=== PATIENT | female | born 1960 | race Caucasian/White ===

== ENCOUNTER 2016-07-14 08:40 | Emergency (ER) | payer BC, OTHER ==
[2016-07-14 09:08] LABS: BASO % 0.7 % (0.0-1.0); EOS # 0.1 K/mm3 (0.0-0.50); LARGE UNSTAINED CELL # 0.1 K/mm3 (0.0-0.4); LARGE UNSTAINED CELL % 2.7 % (0.0-4.0); LYMPH # 1.4 K/mm3 (1.5-4.5); LYMPH % 35.6 % (24.0-44.0); MEAN CORPUSCULAR VOLUME 91.3 fl (80.0-96.0); MONO # 0.2 K/mm3 (0.0-0.8); NEUTROPHILS # 2.1 K/mm3 (1.8-7.7); NEUTROPHILS % 53.1 % (36.0-66.0); PLATELET COUNT, AUTOMATED 206 k/mm3 (150-450); WHITE BLOOD COUNT 3.9 K/mm3 (4.0-10.0)
--- NOTE | 2016-07-14 09:17 | REP ---
Chest one-view HISTORY: Chest pain Comparison: 10/16/2012 The lungs are clear. The heart is normal in size. The pulmonary vasculature is normal in appearance. Impression: No acute disease. Signed by Afshin Gonzáles MD 07/14/2016 09:08 A
[2016-07-14 09:39] LABS: ANION GAP 7 MEQ/L (8-16); BLOOD UREA NITROGEN 12 MG/DL (7-18); CARBON DIOXIDE LEVEL 28 MEQ/L (21-32); CHLORIDE LEVEL 106 MEQ/L (98-107); CREATININE FOR GFR 0.84 MG/DL (0.55-1.02); GLOMERULAR FILTRATION RATE > 60.0 (>51); GLUCOSE, FASTING 89 MG/DL (70-105); POTASSIUM SERUM 4.2 MEQ/L (3.5-5.1); SODIUM LEVEL 141 MEQ/L (136-145)
[2016-07-14] MEDS ORDERED: GI COCKTAIL 50ML BTL(HYOSCYAMINE/MAALOX/LIDOCAINE VISCOUS)(1:3:1) As Ordered ONE (10:10)
[2016-07-14] MEDS ORDERED: PANTOPRAZOLE 40MG INJ (PROTONIX) (C9113) As Ordered ONE (10:10)
[2016-07-14] MEDS ORDERED: SUCRALFATE 1 GM TAB As Ordered ONE (11:26)
--- NOTE | 2016-07-14 12:43 | EDDOCDS ---
Physician Documentation [facility] Name: Kelli Collins Age: 56 yrs Sex: Female : 1960 Arrival Date: 07/14/2016 Time: 08:40 Bed OBSERVATION Private MD: Disposition: 07/14 10:13 I have independently interviewed and examined the patient, and I agree with the sd1 investigation, diagnosis and treatment plan as documented by the Resident. Disposition: 07/14/16 12:22 Discharged to Home/Self Care. Impression: Gastro-esophageal reflux disease. - Condition is Stable. - Medication Reconciliation, Local Pharmacy Hours form. - Follow up: Private Physician; When: As previously arranged; Reason: Recheck today's complaints, Continuance of care. - Problem is new. - Symptoms have improved. - Notes: You were evaluated in the emergency department for chest pain. Your initial and repeatlaboratory results reported no acute changes. Your initial EKG and repeat EKG reported no acute changes. Your chest x-ray revealed no acute disease. You were given a selection of stomach medications which relieved your symptoms. Please keep your pre-scheduled appointment with your lab animal technician and schedule an appointment with your primary care provider at your soonest convenience. Historical: - Allergies: no known allergies; - Home Meds: 1. Zantac 150 mg Oral cap 1 cap 2 times per day 2. Vitamin D3 oral oral daily 3. Estradiol 10mcg Oral once daily - PMHx: GERD; - PSHx: none; - Social history: Smoking status: Patient states former smoker of tobacco. No barriers to communication noted, The patient speaks fluent American. - Family history: Not pertinent. - : The pt / caregiver states he / she is not on anticoagulants. Home medication list is obtained from the patient, family members. - Exposure Risk Screening:: None identified. 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 8 in. (172.72 cm); kr3 08:53 BP 161 / 72 (auto/); mlb1 08:53 Pulse 108 MON; Pulse Ox 94% ; mlb1 08:53 BP 116 / 59; Pulse 62; Resp 16; Temp 97.7(O); Pulse Ox 96% on R/A; Pain 0/10; mlb1 08:55 BP 161 / 72; Pulse 118; Resp 18; Pulse Ox 99% on R/A; Pain 5/10; dem1 08:57 Temp 96.8(O); dem1 09:08 BP 131 / 63 (auto/); mlb1 09:08 Pulse 62 MON; Pulse Ox 98% ; mlb1 09:23 BP 129 / 63 (auto/); mlb1 09:23 Pulse 64 MON; Pulse Ox 98% ; mlb1 09:38 BP 156 / 71 (auto/); mlb1 09:38 Pulse 72 MON; Pulse Ox 99% ; mlb1 09:53 BP 139 / 65 (auto/); mlb1 09:53 Pulse 60 MON; Pulse Ox 99% ; mlb1 10:08 BP 131 / 64 (auto/); mlb1 10:08 Pulse 70 MON; Pulse Ox 100% ; mlb1 10:23 BP 129 / 68 (auto/); mlb1 10:23 Pulse 62 MON; Pulse Ox 98% ; mlb1 10:38 BP 115 / 59 (auto/); mlb1 10:38 Pulse 66 MON; Pulse Ox 97% ; mlb1 10:39 Pain 0/10; mlb1 10:53 BP 117 / 67 (auto/); mlb1 10:53 Pulse 62 MON; Pulse Ox 97% ; mlb1 11:08 BP 130 / 64 (auto/); mlb1 11:08 Pulse 116 MON; Pulse Ox 96% ; mlb1 11:23 BP 120 / 61 (auto/); mlb1 11:23 Pulse 60 MON; Pulse Ox 96% ; mlb1 11:38 BP 129 / 65 (auto/); mlb1 11:38 Pulse 64 MON; Pulse Ox 98% ; mlb1 11:53 BP 119 / 60 (auto/); mlb1 11:53 Pulse 66 MON; Pulse Ox 98% ; mlb1 12:21 BP 118 / 55 (auto/); mlb1 12:22 Pulse 60 MON; Pulse Ox 98% ; mlb1 12:23 BP 128 / 59 (auto/); mlb1 12:23 Pulse 60 MON; Pulse Ox 98% ; mlb1 08:49 Body Mass Index 25.85 (77.11 kg, 172.72 cm) kr3 MDM: 08:43 ECG WITH READING ER PHYS+CARDIAG ordered. EDMS 08:45 Radiological Health Specialist/Pulse Ox/q 30 min VS ordered. sd1 08:45 IV Saline Lock ordered. sd1 08:45 Rhythm Strip to chart ordered. sd1 08:45 Undress patient appropriately for examination ordered. sd1 08:47 Basic Metabolic Profile Ordered. EDMS 08:47 CBC with Diff Ordered. EDMS 08:47 Cardiac Injury Profile Ordered. EDMS 08:47 Troponin Ordered. EDMS 08:49 portable chest Ordered. EDMS 09:19 CBC with Diff Reviewed. jo4 09:45 Basic Metabolic Profile Reviewed. sd1 09:45 Cardiac Injury Profile Reviewed. sd1 09:45 Troponin Reviewed. sd1 09:45 portable chest Reviewed. sd1 09:52 D-Dimer Quant Ordered. EDMS 10:02 GI Cocktail - (Alum-Mag Hydroxide-Simeth 30 ml, Lidocaine 10 ml, Hyoscyamine 10 ml) PO jo4 once; Pre-mixed 50mL unit dose ordered. 10:02 pantoprazole 40 mg IV at bolus once ordered. jo4 10:11 ED course: 56 yo female presents reporting chest pain this am feels like GERD- recent sd1 medication change no cardiac history patient did drive from [place] approximatly [address] no associated complaints or symptoms has been in baseline state of health no exertional symptoms exam well appearing no distress unremarkable plan suspect GI etiology however R/O cardiac and PE . 10:56 D-Dimer Quant Reviewed. jo4 11:05 [facility] Payment Agreement was scanned into Win[employer] and attached to record. jp5 11:05 Financial registration complete. jp5 11:24 Sucralfate 1 grams PO once ordered. sd1 11:39 Redraw CIP &Troponin (put time in details section) ordered. jo4 11:39 Repeat EKG (put time details section) ordered. jo4 11:39 Repeat EKG (put time details section) complete. mlb1 11:39 Redraw CIP &Troponin (put time in details section) complete. mlb1 11:43 CARDIAC INJURY PROFILE Ordered. EDMS 11:54 ECG WITH READING ER PHYS ordered. EDMS 12:19 CARDIAC INJURY PROFILE Reviewed. jo4 12:19 Troponin Reviewed. jo4 Administered Medications: 10:14 Drug: GI Cocktail - (Alum-Mag Hydroxide-Simeth Suspension 225 mg-200 mg-25 mg/5 mL 30 mlb1 ml, Lidocaine Liquid 2 % 10 ml, Hyoscyamine Liquid 10 ml) Route: PO; 10:39 Follow up: Pain 0/10 Adult; chest pain resolved, reports pain 2/10 in left arm only mlb1 10:14 Drug: pantoprazole 40 mg [pantoprazole 40 mg intravenous solution] Route: IV; Rate: mlb1 bolus; Site: left antecubital; 11:29 Drug: Sucralfate 1 grams [sucralfate 1 gram tablet (1 tabs)] Route: PO; mlb1 Signatures: Dispatcher Med[employer] EDMS Emma Coleman MD MD sd1 Bc Jamison RN RN mlb1 Angelia Hicks,RN RN kr3 Magen Campbell jp5 Naomie Underwood DO DO jo4 The chart was reviewed and I authenticate all verbal orders and agree with the evaluation and treatment provided.Corrections: (The following items were deleted from the chart) 11:33 11:27 CARDIAC INJURY PROFILE+LAB ordered. EDMS EDMS 11:33 11:27 TROPONIN+LAB ordered. EDMS EDMS 11:38 11:32 Repeat EKG (put time details section) ordered. jo4 jo4 11:38 11:32 Redraw CIP &Troponin (put time in details section) ordered. jo4 jo4 11:57 11:54 CARDIAC MARKER PANEL ordered. EDMS EDMS 12:11 11:27 ECG WITH READING ER PHYS+CARDIAG ordered. EDMS EDMS Attachments: 11:05 [facility] Payment Agreement jp5 MTDD
--- NOTE | 2016-07-14 12:43 | EDDOCDS ---
Nurse's Notes [facility] Name: Kelli Collins Age: 56 yrs Sex: Female : 1960 Arrival Date: 07/14/2016 Time: 08:40 Bed OBSERVATION Private MD: Diagnosis: Gastro-esophageal reflux disease Presentation: 07/14 08:44 Presenting complaint: Patient states: woke with chest pain at 5:45. Pain into neck and kr3 left arm. Adult Sepsis Screening: The patient does not have new or worsening altered mentation. Patient's respiratory rate is less than 22. Systolic blood pressure is greater than 100. Patient has a qSOFA score of 0- Negative Sepsis Screen. Suicide/Homicide risk assessment- the patient denies having any suicidal and/or homicidal ideations and does not present with any other emotional, behavioral or mental health complaints. Status: Patient is not a elevator operator service or dependent. Transition of care: patient was not received from another setting of care. 08:44 Acuity: YOHANA Level 2 kr3 08:44 Method Of Arrival: Wheelchair kr3 08:49 Aspirin was not taken prior to arrival. Red Flag criteria, patient assessed and taken kr3 directly to a bed. Triage Assessment: 08:46 General: Appears in no apparent distress, Behavior is appropriate for age, cooperative. kr3 Pain: Location: chest Pain currently is 6 out of 10 on a pain scale. Pain radiates to left arm and neck. Pt Declines HIV testing. Cardiovascular: Chest pain is described as vague, radiates to left arm(s) episodes are intermittent began 3 hours prior to arrival. Respiratory: Respiratory effort is even, unlabored, Denies shortness of breath. Derm: Skin is normal. 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 Zantac 150 mg Oral cap 1 cap 2 times per day 2. Vitamin D3 oral oral daily 3. Estradiol 10mcg Oral once daily - PMHx: GERD; - PSHx: none; - Social history: Smoking status: Patient states former smoker of tobacco. No barriers to communication noted, The patient speaks fluent Khmer. - Family history: Not pertinent. - : The pt / caregiver states he / she is not on anticoagulants. Home medication list is obtained from the patient, family members. - Exposure Risk Screening:: None identified. Screenin:39 Screening information is obtained from the patient. Fall risk: No risks identified. mlb1 Assistance ADL's: requires no assistance with activities of daily living. Abuse/DV Screen: The patient / caregiver reports he/she is: not in a situation that causes fear, pain or injury. Nutritional screening: No deficits noted. Advance Directives: Currently, there is no health care proxy. home support is adequate. Assessment: 08:58 General: Appears in no apparent distress, comfortable, Behavior is appropriate for age, mlb1 cooperative. Pain: Location: anterior aspect of left upper chest Pain currently is 5 out of 10 on a pain scale. Pain radiates to left arm and neck. Cardiovascular: Rhythm is sinus rhythm No ectopy. Respiratory: Airway is patent Respiratory effort is even, unlabored, Breath sounds are clear bilaterally. Derm: Skin is pink, warm & dry. normal. 09:49 General: Appears in no apparent distress, comfortable, Behavior is appropriate for age, mlb1 cooperative. Pain: Location: anterior aspect of left upper chest Pain currently is 3 out of 10 on a pain scale. Respiratory: No deficits noted. 10:39 General: Appears in no apparent distress, comfortable, Behavior is appropriate for age, mlb1 cooperative. General: Appears. Pain: Location: left arm Pain currently is 2 out of 10 on a pain scale. Cardiovascular: Chest pain is denied. Respiratory: No deficits noted. 11:40 Adult Sepsis Screening: The patient does not have new or worsening altered mentation. mlb1 Patient's respiratory rate is less than 22. Systolic blood pressure is greater than 100. Patient has a qSOFA score of 0- Negative Sepsis Screen. General: Appears in no apparent distress, comfortable, Behavior is appropriate for age, cooperative. Pain: Denies pain. 12:39 General: Appears in no apparent distress, comfortable, Behavior is appropriate for age, mlb1 cooperative. Pain: Denies pain. Cardiovascular: No deficits noted. Vital Signs: 08:49 Weight 77.11 kg (R); Height 5 ft. 8 in. (172.72 cm); kr3 08:53 BP 161 / 72 (auto/); mlb1 08:53 Pulse 108 MON; Pulse Ox 94% ; mlb1 08:53 BP 116 / 59; Pulse 62; Resp 16; Temp 97.7(O); Pulse Ox 96% on R/A; Pain 0/10; mlb1 08:55 BP 161 / 72; Pulse 118; Resp 18; Pulse Ox 99% on R/A; Pain 5/10; dem1 08:57 Temp 96.8(O); dem1 09:08 BP 131 / 63 (auto/); mlb1 09:08 Pulse 62 MON; Pulse Ox 98% ; mlb1 09:23 BP 129 / 63 (auto/); mlb1 09:23 Pulse 64 MON; Pulse Ox 98% ; mlb1 09:38 BP 156 / 71 (auto/); mlb1 09:38 Pulse 72 MON; Pulse Ox 99% ; mlb1 09:53 BP 139 / 65 (auto/); mlb1 09:53 Pulse 60 MON; Pulse Ox 99% ; mlb1 10:08 BP 131 / 64 (auto/); mlb1 10:08 Pulse 70 MON; Pulse Ox 100% ; mlb1 10:23 BP 129 / 68 (auto/); mlb1 10:23 Pulse 62 MON; Pulse Ox 98% ; mlb1 10:38 BP 115 / 59 (auto/); mlb1 10:38 Pulse 66 MON; Pulse Ox 97% ; mlb1 10:39 Pain 0/10; mlb1 10:53 BP 117 / 67 (auto/); mlb1 10:53 Pulse 62 MON; Pulse Ox 97% ; mlb1 11:08 BP 130 / 64 (auto/); mlb1 11:08 Pulse 116 MON; Pulse Ox 96% ; mlb1 11:23 BP 120 / 61 (auto/); mlb1 11:23 Pulse 60 MON; Pulse Ox 96% ; mlb1 11:38 BP 129 / 65 (auto/); mlb1 11:38 Pulse 64 MON; Pulse Ox 98% ; mlb1 11:53 BP 119 / 60 (auto/); mlb1 11:53 Pulse 66 MON; Pulse Ox 98% ; mlb1 12:21 BP 118 / 55 (auto/); mlb1 12:22 Pulse 60 MON; Pulse Ox 98% ; mlb1 12:23 BP 128 / 59 (auto/); mlb1 12:23 Pulse 60 MON; Pulse Ox 98% ; mlb1 08:49 Body Mass Index 25.85 (77.11 kg, 172.72 cm) kr3 Vitals: 08:46 Log In Time: July 14, 2016 at 08:40. kr3 ED Course: 08:42 Patient visited by Drake Alfred. mm15 08:42 Patient moved to Waiting mm15 08:43 Patient moved to 11 kr3 08:45 Triage Initiated kr3 08:53 EKG done. (by ED staff). Reviewed by Emma Coleman MD. dem1 08:56 Patient visited by Celestina Rubio. dem1 08:57 Patient visited by Celestina Rubio. dem1 08:57 Basic Metabolic Profile Sent. mlb1 08:57 CBC with Diff Sent. mlb1 08:57 Cardiac Injury Profile Sent. mlb1 08:57 Troponin Sent. mlb1 08:57 Inserted saline lock: 20 gauge in left antecubital area and blood collected. The mlb1 patient tolerated the procedure well. Labs drawn. (by ED staff). Sent per order to lab. 08:58 The patient / caregiver is instructed regarding the plan of care and ED course. mlb1 Accompanied by Significant Other, Patient has correct armband on for positive identification. Placed in gown. Bed in low position. Call light in reach. Side rails up X2. shelter monitor on. Pulse ox on. NIBP on. 08:59 Patient visited by Bc Jamison, SLIME. mlb1 09:13 Naomie Underwood DO is PHCP. jo4 09:13 Emma Coleman MD is Attending Physician. jo4 09:22 Patient visited by Naomie Underwood DO. jo4 09:22 Patient visited by Naomie Underwood DO. jo4 09:36 portable chest Returned. EDMS 09:49 Patient visited by Bc Jamison, RN. mlb1 09:55 D-Dimer Quant Sent. mlb1 10:40 Patient visited by Bc Jamison, RN. mlb1 11:05 [facility] [place] was scanned into Con[employer] Access and attached to record. jp5 11:25 Patient moved to OBSERVATION sd1 11:45 CARDIAC INJURY PROFILE Sent. mlb1 12:05 EKG done. (by ED staff). Reviewed by Naomie Underwood DO. dem1 12:07 Patient visited by Celestina Rubio. dem1 12:39 Discontinued lock intact, bleeding controlled, pressure dressing applied, No mlb1 redness/swelling at site. No procedures done that require assistance. Administered Medications: 10:14 Drug: GI Cocktail - (Alum-Mag Hydroxide-Simeth Suspension 225 mg-200 mg-25 mg/5 mL 30 mlb1 ml, Lidocaine Liquid 2 % 10 ml, Hyoscyamine Liquid 10 ml) Route: PO; 10:39 Follow up: Pain 0/10 Adult; chest pain resolved, reports pain 2/10 in left arm only mlb1 10:14 Drug: pantoprazole 40 mg [pantoprazole 40 mg intravenous solution] Route: IV; Rate: mlb1 bolus; Site: left antecubital; 11:29 Drug: Sucralfate 1 grams [sucralfate 1 gram tablet (1 tabs)] Route: PO; mlb1 Intake: Order Results: Lab Order: Basic Metabolic Profile; SPEC'M 07/14/16 08:54 Test: GLUCOSE, FASTING; Value: 89; Range: 70-105; Units: MG/DL; Status: F Test: BLOOD UREA NITROGEN; Value: 12; Range: 7-18; Units: MG/DL; Status: F Test: CREATININE FOR GFR; Value: 0.84; Range: 0.55-1.02; Units: MG/DL; Status: F Test: GLOMERULAR FILTRATION RATE; Value: > 60.0; Range: >51; Status: F Test: SODIUM LEVEL; Value: 141; Range: 136-145; Units: MEQ/L; Status: F Test: POTASSIUM SERUM; Value: 4.2; Range: 3.5-5.1; Units: MEQ/L; Status: F Test: CHLORIDE LEVEL; Value: 106; Range: 98-107; Units: MEQ/L; Status: F Test: CARBON DIOXIDE LEVEL; Value: 28; Range: 21-32; Units: MEQ/L; Status: F Test: ANION GAP; Value: 7; Range: 8-16; Abnormal: Below low normal; Units: MEQ/L; Status: F Test: CALCIUM LEVEL; Value: 10.0; Range: 8.5-10.1; Units: MG/DL; Status: F Test Note: ; Units are mL/min/1.73 m2 Chronic Kidney Disease Staging per NKF: Stage I & II GFR >=60 Normal to Mildly Decreased Stage III GFR 30-59 Moderately Decreased Stage IV GFR 15-29 Severely Decreased Stage V GFR <15 Very Little GFR Left ESRD GFR <15 on PRECISION MARKET INSIGHTS Lab Order: CBC with Diff; SPEC'M 07/14/16 08:54 Test: WHITE BLOOD COUNT; Value: 3.9; Range: 4.0-10.0; Abnormal: Below low normal; Units: K/mm3; Status: F Test: RED BLOOD COUNT; Value: 4.72; Range: 4.00-5.40; Units: M/mm3; Status: F Test: HEMOGLOBIN; Value: 14.6; Range: 12.0-16.0; Units: g/dl; Status: F Test: HEMATOCRIT; Value: 43.1; Range: 36.0-47.0; Units: %; Status: F Test: MEAN CORPUSCULAR VOLUME; Value: 91.3; Range: 80.0-96.0; Units: fl; Status: F Test: MEAN CORPUSCULAR HEMOGLOBIN; Value: 31.0; Range: 27.0-33.0; Units: pg; Status: F Test: MEAN CORPUSCULAR HGB CONC; Value: 34.0; Range: 32.0-36.5; Units: g/dl; Status: F Test: RED CELL DISTRIBUTION WIDTH; Value: 13.0; Range: 11.5-14.5; Units: %; Status: F Test: PLATELET COUNT, AUTOMATED; Value: 206; Range: 150-450; Units: k/mm3; Status: F Test: NEUTROPHILS %; Value: 53.1; Range: 36.0-66.0; Units: %; Status: F Test: LYMPH %; Value: 35.6; Range: 24.0-44.0; Units: %; Status: F Test: MONO %; Value: 6.0; Range: 0.0-5.0; Abnormal: Above high normal; Units: %; Status: F Test: EOS %; Value: 2.0; Range: 0.0-3.0; Units: %; Status: F Test: BASO %; Value: 0.7; Range: 0.0-1.0; Units: %; Status: F Test: LARGE UNSTAINED CELL %; Value: 2.7; Range: 0.0-4.0; Units: %; Status: F Test: NEUTROPHILS #; Value: 2.1; Range: 1.8-7.7; Units: K/mm3; Status: F Test: LYMPH #; Value: 1.4; Range: 1.5-4.5; Abnormal: Below low normal; Units: K/mm3; Status: F Test: MONO #; Value: 0.2; Range: 0.0-0.8; Units: K/mm3; Status: F Test: EOS #; Value: 0.1; Range: 0.0-0.50; Units: K/mm3; Status: F Test: BASO #; Value: 0.0; Range: 0.0-0.2; Units: K/mm3; Status: F Test: LARGE UNSTAINED CELL #; Value: 0.1; Range: 0.0-0.4; Units: K/mm3; Status: F Lab Order: Cardiac Injury Profile; [facility]' 07/14/16 08:54 Test: CPK CREATINE PHOSPHOKINASE; Value: 40; Range: 26-192; Units: U/L; Status: F Test: CK-MB VALUE MASS; Value: 1.0; Range: 0.0-3.6; Units: NG/ML; Status: F Test: MB/CK RELATIVE INDEX; Value: 2.50; Range: < OR =4; Status: F Test Note: ; DIAGNOSIS CRITERIA MMB ng/ml Relative Index (RI) NON-AMI < or = 5 N/A TARIQ ZONE > 5 < or = 4 AMI > 5 > 4 Lab Order: Troponin; [facility]' 07/14/16 08:54 Test: TROPONIN I; Value: < 0.02; Range: < 0.10; Units: NG/ML; Status: F Test Note: ; Troponin I Reference Interval for Re-vinyl LOCI: 99th Percentile= 0.00-0.045 ng/ml Risk Stratification: <= 0.10 ng/ml Decreased Risk for Adverse Clinical Events. 0.10-1.50 ng/ml Increased Risk for Adverse Clinical Events. Evaluation of additional criterion and/or repeat testing in 2-6 hours is suggested to rule out myocardial damage. >= 1.50 ng/ml Indicative of Myocardial Injury. Lab Order: D-Dimer Quant; SPEC' 07/14/16 08:54 Test: D-DIMER QUANT; Value: < 270.0; Range: <500; Units: ng/ml; Status: F Lab Order: Troponin; SPEC'M 07/14/16 11:31 Test: TROPONIN I; Value: < 0.02; Range: < 0.10; Units: NG/ML; Status: F Test Note: ; Troponin I Reference Interval for Siemens InEnTec LOCI: 99th Percentile= 0.00-0.045 ng/ml Risk Stratification: <= 0.10 ng/ml Decreased Risk for Adverse Clinical Events. 0.10-1.50 ng/ml Increased Risk for Adverse Clinical Events. Evaluation of additional criterion and/or repeat testing in 2-6 hours is suggested to rule out myocardial damage. >= 1.50 ng/ml Indicative of Myocardial Injury. Lab Order: CARDIAC INJURY PROFILE; SPEC'M 07/14/16 11:31 Test: CPK CREATINE PHOSPHOKINASE; Value: 26; Range: 26-192; Units: U/L; Status: F Test: CK-MB VALUE MASS; Value: 1.0; Range: 0.0-3.6; Units: NG/ML; Status: F Test: MB/CK RELATIVE INDEX; Value: 3.84; Range: < OR =4; Status: F Test Note: ; DIAGNOSIS CRITERIA MMB ng/ml Relative Index (RI) NON-AMI < or = 5 N/A TARIQ ZONE > 5 < or = 4 AMI > 5 > 4 Radiology Order: portable chest Test: portable chest REASON FOR EXAMINATION: Chest Pain; Chest one-view; ; HISTORY: Chest pain; ; Comparison: 10/16/2012; ; The lungs are clear. The heart is normal in size. The pulmonary vasculature is; normal in appearance.; ; Impression: No acute disease.; ; ; Signed by; Afshin Gonzáles MD 07/14/2016 09:08 A; Outcome: 12:22 Discharge ordered by Provider. jo4 12:40 Discharge Assessment: patient administered narcotics - no. The following High Risk mlb1 Discharge criteria are identified: None. Discharged to home ambulatory. Condition: good. Discharge instructions given to patient, Instructed on discharge instructions, follow up and referral plans. Demonstrated understanding of instructions, medications, Pt was receptive of discharge instructions/ teaching. No special radiology studies were completed. Property removed. 12:41 Patient left the ED. mlb1 Signatures: Dispatcher Med[employer] EDMS Emma Coleman MD MD sd1 Bc Jaimson RN RN mlb1 Angelia Hicks RN RN kr3 Celestina Rubio1 Drake Alfred mm15 Magen Campbell jp5 Naomie Underwood DO DO jo4 MTDD
--- NOTE | 2016-07-14 20:21 | ECGEPIP ---
Stationary ECG Study [facility] - ED Test Date: 2016-07-14 Pat Name: LYNN BROWNING Department: Room: - Gender: F Appeals Assistant: karin : 1960 Requested By: Emma Coleman Order Number: [id number] Reading MD: Emma Coleman Measurements Intervals [place] Rate: 68 P: 101 IN: 142 QRS: 75 QRSD: 102 T: 49 QT: 404 QTc: 432 Interpretive Statements SINUS RHYTHM BASELINE ARTIFACT LIMITS INTERPRETATION Electronically Signed On 07-14-2016 20:21:30 EST by Emma Coleman
--- NOTE | 2016-07-14 20:24 | ECGEPIP ---
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
--- NOTE | 2016-07-16 13:43 | EDDOCDS ---
Physician Documentation [facility] Name: Kelli Collins Age: 56 yrs Sex: Female : 1960 Arrival Date: 07/14/2016 Time: 08:40 Bed OBSERVATION Private MD: Disposition: 07/14 10:13 I have independently interviewed and examined the patient, and I agree with the sd1 investigation, diagnosis and treatment plan as documented by the Resident. Disposition: 07/14/16 12:22 Discharged to Home/Self Care. Impression: Gastro-esophageal reflux disease. - Condition is Stable. - Medication Reconciliation, Local Pharmacy Hours form. - Follow up: Private Physician; When: As previously arranged; Reason: Recheck today's complaints, Continuance of care. - Problem is new. - Symptoms have improved. - Notes: You were evaluated in the emergency department for chest pain. Your initial and repeatlaboratory results reported no acute changes. Your initial EKG and repeat EKG reported no acute changes. Your chest x-ray revealed no acute disease. You were given a selection of stomach medications which relieved your symptoms. Please keep your pre-scheduled appointment with your parachute folder and schedule an appointment with your primary care provider at your soonest convenience. Historical: - Allergies: no known allergies; - Home Meds: 1. Zantac 150 mg Oral cap 1 cap 2 times per day 2. Vitamin D3 oral oral daily 3. Estradiol 10mcg Oral once daily - PMHx: GERD; - PSHx: none; - Social history: Smoking status: Patient states former smoker of tobacco. No barriers to communication noted, The patient speaks fluent [place]. - Family history: Not pertinent. - : The pt / caregiver states he / she is not on anticoagulants. Home medication list is obtained from the patient, family members. - Exposure Risk Screening:: None identified. 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 8 in. (172.72 cm); kr3 08:53 BP 161 / 72 (auto/); mlb1 08:53 Pulse 108 MON; Pulse Ox 94% ; mlb1 08:53 BP 116 / 59; Pulse 62; Resp 16; Temp 97.7(O); Pulse Ox 96% on R/A; Pain 0/10; mlb1 08:55 BP 161 / 72; Pulse 118; Resp 18; Pulse Ox 99% on R/A; Pain 5/10; dem1 08:57 Temp 96.8(O); dem1 09:08 BP 131 / 63 (auto/); mlb1 09:08 Pulse 62 MON; Pulse Ox 98% ; mlb1 09:23 BP 129 / 63 (auto/); mlb1 09:23 Pulse 64 MON; Pulse Ox 98% ; mlb1 09:38 BP 156 / 71 (auto/); mlb1 09:38 Pulse 72 MON; Pulse Ox 99% ; mlb1 09:53 BP 139 / 65 (auto/); mlb1 09:53 Pulse 60 MON; Pulse Ox 99% ; mlb1 10:08 BP 131 / 64 (auto/); mlb1 10:08 Pulse 70 MON; Pulse Ox 100% ; mlb1 10:23 BP 129 / 68 (auto/); mlb1 10:23 Pulse 62 MON; Pulse Ox 98% ; mlb1 10:38 BP 115 / 59 (auto/); mlb1 10:38 Pulse 66 MON; Pulse Ox 97% ; mlb1 10:39 Pain 0/10; mlb1 10:53 BP 117 / 67 (auto/); mlb1 10:53 Pulse 62 MON; Pulse Ox 97% ; mlb1 11:08 BP 130 / 64 (auto/); mlb1 11:08 Pulse 116 MON; Pulse Ox 96% ; mlb1 11:23 BP 120 / 61 (auto/); mlb1 11:23 Pulse 60 MON; Pulse Ox 96% ; mlb1 11:38 BP 129 / 65 (auto/); mlb1 11:38 Pulse 64 MON; Pulse Ox 98% ; mlb1 11:53 BP 119 / 60 (auto/); mlb1 11:53 Pulse 66 MON; Pulse Ox 98% ; mlb1 12:21 BP 118 / 55 (auto/); mlb1 12:22 Pulse 60 MON; Pulse Ox 98% ; mlb1 12:23 BP 128 / 59 (auto/); mlb1 12:23 Pulse 60 MON; Pulse Ox 98% ; mlb1 08:49 Body Mass Index 25.85 (77.11 kg, 172.72 cm) kr3 MDM: 08:43 ECG WITH READING ER PHYS+CARDIAG ordered. EDMS 08:45 Manager Merchandise/Pulse Ox/q 30 min VS ordered. sd1 08:45 IV Saline Lock ordered. sd1 08:45 Rhythm Strip to chart ordered. sd1 08:45 Undress patient appropriately for examination ordered. sd1 08:47 Basic Metabolic Profile Ordered. EDMS 08:47 CBC with Diff Ordered. EDMS 08:47 Cardiac Injury Profile Ordered. EDMS 08:47 Troponin Ordered. EDMS 08:49 portable chest Ordered. EDMS 09:19 CBC with Diff Reviewed. jo4 09:45 Basic Metabolic Profile Reviewed. sd1 09:45 Cardiac Injury Profile Reviewed. sd1 09:45 Troponin Reviewed. sd1 09:45 portable chest Reviewed. sd1 09:52 D-Dimer Quant Ordered. EDMS 10:02 GI Cocktail - (Alum-Mag Hydroxide-Simeth 30 ml, Lidocaine 10 ml, Hyoscyamine 10 ml) PO jo4 once; Pre-mixed 50mL unit dose ordered. 10:02 pantoprazole 40 mg IV at bolus once ordered. jo4 10:11 ED course: 56 yo female presents reporting chest pain this am feels like GERD- recent sd1 medication change no cardiac history patient did drive from [place] approximatly [address] no associated complaints or symptoms has been in baseline state of health no exertional symptoms exam well appearing no distress unremarkable plan suspect GI etiology however R/O cardiac and PE . 10:56 D-Dimer Quant Reviewed. jo4 11:05 [facility] Payment Agreement was scanned into [employer] and attached to record. jp5 11:05 Financial registration complete. jp5 11:24 Sucralfate 1 grams PO once ordered. sd1 11:39 Redraw CIP &Troponin (put time in details section) ordered. jo4 11:39 Repeat EKG (put time details section) ordered. jo4 11:39 Repeat EKG (put time details section) complete. mlb1 11:39 Redraw CIP &Troponin (put time in details section) complete. mlb1 11:43 CARDIAC INJURY PROFILE Ordered. EDMS 11:54 ECG WITH READING ER PHYS ordered. EDMS 12:19 CARDIAC INJURY PROFILE Reviewed. jo4 12:19 Troponin Reviewed. jo4 14:29 ECG/EKG was scanned into [employer] and attached to record. gb 07/15 11:02 T-Sheet-- Draft Copy was scanned into [employer] and attached to record. gb Administered Medications: 07/14 10:14 Drug: GI Cocktail - (Alum-Mag Hydroxide-Simeth Suspension 225 mg-200 mg-25 mg/5 mL 30 mlb1 ml, Lidocaine Liquid 2 % 10 ml, Hyoscyamine Liquid 10 ml) Route: PO; 10:39 Follow up: Pain 0/10 Adult; chest pain resolved, reports pain 2/10 in left arm only mlb1 10:14 Drug: pantoprazole 40 mg [pantoprazole 40 mg intravenous solution] Route: IV; Rate: mlb1 bolus; Site: left antecubital; 11:29 Drug: Sucralfate 1 grams [sucralfate 1 gram tablet (1 tabs)] Route: PO; mlb1 Signatures: Dispatcher [employer] EDMS Emma Coleman MD MD sd1 Sunni Duncan, Silver Reg Bc Herrera RN RN mlb1 Angelia HicksRN RN kr3 Magen Campbell jp5 Naomie Underwood DO DO jo4 The chart was reviewed and I authenticate all verbal orders and agree with the evaluation and treatment provided.Corrections: (The following items were deleted from the chart) 11:33 11:27 CARDIAC INJURY PROFILE+LAB ordered. EDMS EDMS 11:33 11:27 TROPONIN+LAB ordered. EDMS EDMS 11:38 11:32 Repeat EKG (put time details section) ordered. jo4 jo4 11:38 11:32 Redraw CIP &Troponin (put time in details section) ordered. jo4 jo4 11:57 11:54 CARDIAC MARKER PANEL ordered. EDMS EDMS 12:11 11:27 ECG WITH READING ER PHYS+CARDIAG ordered. EDMS EDMS Attachments: 11:05 [facility] Payment Agreement jp5 14:29 ECG/EKG 07/15 11:02 T-Sheet-- Draft Copy gb Chart Complete MTDD
--- NOTE | 2016-07-16 13:43 | EDDOCDS ---
Nurse's Notes [facility] Name: Kelli Collins Age: 56 yrs Sex: Female : 1960 Arrival Date: 07/14/2016 Time: 08:40 Bed OBSERVATION Private MD: Diagnosis: Gastro-esophageal reflux disease Presentation: 07/14 08:44 Presenting complaint: Patient states: woke with chest pain at 5:45. Pain into neck and kr3 left arm. Adult Sepsis Screening: The patient does not have new or worsening altered mentation. Patient's respiratory rate is less than 22. Systolic blood pressure is greater than 100. Patient has a qSOFA score of 0- Negative Sepsis Screen. Suicide/Homicide risk assessment- the patient denies having any suicidal and/or homicidal ideations and does not present with any other emotional, behavioral or mental health complaints. Status: Patient is not a director construction services or dependent. Transition of care: patient was not received from another setting of care. 08:44 Acuity: YOHANA Level 2 kr3 08:44 Method Of Arrival: Wheelchair kr3 08:49 Aspirin was not taken prior to arrival. Red Flag criteria, patient assessed and taken kr3 directly to a bed. Triage Assessment: 08:46 General: Appears in no apparent distress, Behavior is appropriate for age, cooperative. kr3 Pain: Location: chest Pain currently is 6 out of 10 on a pain scale. Pain radiates to left arm and neck. Pt Declines HIV testing. Cardiovascular: Chest pain is described as vague, radiates to left arm(s) episodes are intermittent began 3 hours prior to arrival. Respiratory: Respiratory effort is even, unlabored, Denies shortness of breath. Derm: Skin is normal. 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 Zantac 150 mg Oral cap 1 cap 2 times per day 2. Vitamin D3 oral oral daily 3. Estradiol 10mcg Oral once daily - PMHx: GERD; - PSHx: none; - Social history: Smoking status: Patient states former smoker of tobacco. No barriers to communication noted, The patient speaks fluent [place]ian. - Family history: Not pertinent. - : The pt / caregiver states he / she is not on anticoagulants. Home medication list is obtained from the patient, family members. - Exposure Risk Screening:: None identified. Screenin:39 Screening information is obtained from the patient. Fall risk: No risks identified. mlb1 Assistance ADL's: requires no assistance with activities of daily living. Abuse/DV Screen: The patient / caregiver reports he/she is: not in a situation that causes fear, pain or injury. Nutritional screening: No deficits noted. Advance Directives: Currently, there is no health care proxy. home support is adequate. Assessment: 08:58 General: Appears in no apparent distress, comfortable, Behavior is appropriate for age, mlb1 cooperative. Pain: Location: anterior aspect of left upper chest Pain currently is 5 out of 10 on a pain scale. Pain radiates to left arm and neck. Cardiovascular: Rhythm is sinus rhythm No ectopy. Respiratory: Airway is patent Respiratory effort is even, unlabored, Breath sounds are clear bilaterally. Derm: Skin is pink, warm & dry. normal. 09:49 General: Appears in no apparent distress, comfortable, Behavior is appropriate for age, mlb1 cooperative. Pain: Location: anterior aspect of left upper chest Pain currently is 3 out of 10 on a pain scale. Respiratory: No deficits noted. 10:39 General: Appears in no apparent distress, comfortable, Behavior is appropriate for age, mlb1 cooperative. General: Appears. Pain: Location: left arm Pain currently is 2 out of 10 on a pain scale. Cardiovascular: Chest pain is denied. Respiratory: No deficits noted. 11:40 Adult Sepsis Screening: The patient does not have new or worsening altered mentation. mlb1 Patient's respiratory rate is less than 22. Systolic blood pressure is greater than 100. Patient has a qSOFA score of 0- Negative Sepsis Screen. General: Appears in no apparent distress, comfortable, Behavior is appropriate for age, cooperative. Pain: Denies pain. 12:39 General: Appears in no apparent distress, comfortable, Behavior is appropriate for age, mlb1 cooperative. Pain: Denies pain. Cardiovascular: No deficits noted. Vital Signs: 08:49 Weight 77.11 kg (R); Height 5 ft. 8 in. (172.72 cm); kr3 08:53 BP 161 / 72 (auto/); mlb1 08:53 Pulse 108 MON; Pulse Ox 94% ; mlb1 08:53 BP 116 / 59; Pulse 62; Resp 16; Temp 97.7(O); Pulse Ox 96% on R/A; Pain 0/10; mlb1 08:55 BP 161 / 72; Pulse 118; Resp 18; Pulse Ox 99% on R/A; Pain 5/10; dem1 08:57 Temp 96.8(O); dem1 09:08 BP 131 / 63 (auto/); mlb1 09:08 Pulse 62 MON; Pulse Ox 98% ; mlb1 09:23 BP 129 / 63 (auto/); mlb1 09:23 Pulse 64 MON; Pulse Ox 98% ; mlb1 09:38 BP 156 / 71 (auto/); mlb1 09:38 Pulse 72 MON; Pulse Ox 99% ; mlb1 09:53 BP 139 / 65 (auto/); mlb1 09:53 Pulse 60 MON; Pulse Ox 99% ; mlb1 10:08 BP 131 / 64 (auto/); mlb1 10:08 Pulse 70 MON; Pulse Ox 100% ; mlb1 10:23 BP 129 / 68 (auto/); mlb1 10:23 Pulse 62 MON; Pulse Ox 98% ; mlb1 10:38 BP 115 / 59 (auto/); mlb1 10:38 Pulse 66 MON; Pulse Ox 97% ; mlb1 10:39 Pain 0/10; mlb1 10:53 BP 117 / 67 (auto/); mlb1 10:53 Pulse 62 MON; Pulse Ox 97% ; mlb1 11:08 BP 130 / 64 (auto/); mlb1 11:08 Pulse 116 MON; Pulse Ox 96% ; mlb1 11:23 BP 120 / 61 (auto/); mlb1 11:23 Pulse 60 MON; Pulse Ox 96% ; mlb1 11:38 BP 129 / 65 (auto/); mlb1 11:38 Pulse 64 MON; Pulse Ox 98% ; mlb1 11:53 BP 119 / 60 (auto/); mlb1 11:53 Pulse 66 MON; Pulse Ox 98% ; mlb1 12:21 BP 118 / 55 (auto/); mlb1 12:22 Pulse 60 MON; Pulse Ox 98% ; mlb1 12:23 BP 128 / 59 (auto/); mlb1 12:23 Pulse 60 MON; Pulse Ox 98% ; mlb1 08:49 Body Mass Index 25.85 (77.11 kg, 172.72 cm) kr3 Vitals: 08:46 Log In Time: July 14, 2016 at 08:40. kr3 ED Course: 08:42 Patient visited by Drake Alfred. mm15 08:42 Patient moved to Waiting mm15 08:43 Patient moved to 11 kr3 08:45 Triage Initiated kr3 08:53 EKG done. (by ED staff). Reviewed by Emma Coleman MD. dem1 08:56 Patient visited by Celestina Rubio. dem1 08:57 Patient visited by Celestina Rubio. dem1 08:57 Basic Metabolic Profile Sent. mlb1 08:57 CBC with Diff Sent. mlb1 08:57 Cardiac Injury Profile Sent. mlb1 08:57 Troponin Sent. mlb1 08:57 Inserted saline lock: 20 gauge in left antecubital area and blood collected. The mlb1 patient tolerated the procedure well. Labs drawn. (by ED staff). Sent per order to lab. 08:58 The patient / caregiver is instructed regarding the plan of care and ED course. mlb1 Accompanied by Significant Other, Patient has correct armband on for positive identification. Placed in gown. Bed in low position. Call light in reach. Side rails up X2. alarm security or surveillance monitor on. Pulse ox on. NIBP on. 08:59 Patient visited by Bc Jamison, SLIME. mlb1 09:13 Naomie Underwood DO is PHCP. jo4 09:13 Emma Coleman MD is Attending Physician. jo4 09:22 Patient visited by Naomie Underwood DO. jo4 09:22 Patient visited by Naomie Underwood DO. jo4 09:36 portable chest Returned. EDMS 09:49 Patient visited by Bc Jamison, RN. mlb1 09:55 D-Dimer Quant Sent. mlb1 10:40 Patient visited by Bc Jamison, RN. mlb1 11:05 [facility] Payment Agreement was scanned into [employer] and attached to record. jp5 11:25 Patient moved to OBSERVATION sd1 11:45 CARDIAC INJURY PROFILE Sent. mlb1 12:05 EKG done. (by ED staff). Reviewed by Naomie Underwood DO. dem1 12:07 Patient visited by Celestina Rubio. dem1 12:39 Discontinued lock intact, bleeding controlled, pressure dressing applied, No mlb1 redness/swelling at site. No procedures done that require assistance. 13:10 Patient name changed from Kelli\S\P\S\Neuclarisse\S\ to Kelli\S\Aminah\S\Momorch. EDMS 14:29 ECG/EKG was scanned into [employer] and attached to record. gb 21:16 EKG-ADULT Returned. EDMS 21:16 ECG WITH READING ER PHYS Returned. EDMS 07/15 11:02 T-Sheet-- Draft Copy was scanned into [employer] and attached to record. gb Administered Medications: 07/14 10:14 Drug: GI Cocktail - (Alum-Mag Hydroxide-Simeth Suspension 225 mg-200 mg-25 mg/5 mL 30 mlb1 ml, Lidocaine Liquid 2 % 10 ml, Hyoscyamine Liquid 10 ml) Route: PO; 10:39 Follow up: Pain 0/10 Adult; chest pain resolved, reports pain 2/10 in left arm only mlb1 10:14 Drug: pantoprazole 40 mg [pantoprazole 40 mg intravenous solution] Route: IV; Rate: mlb1 bolus; Site: left antecubital; 11:29 Drug: Sucralfate 1 grams [sucralfate 1 gram tablet (1 tabs)] Route: PO; mlb1 Intake: Order Results: Lab Order: Basic Metabolic Profile; SPEC'M 07/14/16 08:54 Test: GLUCOSE, FASTING; Value: 89; Range: 70-105; Units: MG/DL; Status: F Test: BLOOD UREA NITROGEN; Value: 12; Range: 7-18; Units: MG/DL; Status: F Test: CREATININE FOR GFR; Value: 0.84; Range: 0.55-1.02; Units: MG/DL; Status: F Test: GLOMERULAR FILTRATION RATE; Value: > 60.0; Range: >51; Status: F Test: SODIUM LEVEL; Value: 141; Range: 136-145; Units: MEQ/L; Status: F Test: POTASSIUM SERUM; Value: 4.2; Range: 3.5-5.1; Units: MEQ/L; Status: F Test: CHLORIDE LEVEL; Value: 106; Range: 98-107; Units: MEQ/L; Status: F Test: CARBON DIOXIDE LEVEL; Value: 28; Range: 21-32; Units: MEQ/L; Status: F Test: ANION GAP; Value: 7; Range: 8-16; Abnormal: Below low normal; Units: MEQ/L; Status: F Test: CALCIUM LEVEL; Value: 10.0; Range: 8.5-10.1; Units: MG/DL; Status: F Test Note: ; Units are mL/min/1.73 m2 Chronic Kidney Disease Staging per NKF: Stage I & II GFR >=60 Normal to Mildly Decreased Stage III GFR 30-59 Moderately Decreased Stage IV GFR 15-29 Severely Decreased Stage V GFR <15 Very Little GFR Left ESRD GFR <15 on TREE SCOUT Lab Order: CBC with Diff; SPEC'M 07/14/16 08:54 Test: WHITE BLOOD COUNT; Value: 3.9; Range: 4.0-10.0; Abnormal: Below low normal; Units: K/mm3; Status: F Test: RED BLOOD COUNT; Value: 4.72; Range: 4.00-5.40; Units: M/mm3; Status: F Test: HEMOGLOBIN; Value: 14.6; Range: 12.0-16.0; Units: g/dl; Status: F Test: HEMATOCRIT; Value: 43.1; Range: 36.0-47.0; Units: %; Status: F Test: MEAN CORPUSCULAR VOLUME; Value: 91.3; Range: 80.0-96.0; Units: fl; Status: F Test: MEAN CORPUSCULAR HEMOGLOBIN; Value: 31.0; Range: 27.0-33.0; Units: pg; Status: F Test: MEAN CORPUSCULAR HGB CONC; Value: 34.0; Range: 32.0-36.5; Units: g/dl; Status: F Test: RED CELL DISTRIBUTION WIDTH; Value: 13.0; Range: 11.5-14.5; Units: %; Status: F Test: PLATELET COUNT, AUTOMATED; Value: 206; Range: 150-450; Units: k/mm3; Status: F Test: NEUTROPHILS %; Value: 53.1; Range: 36.0-66.0; Units: %; Status: F Test: LYMPH %; Value: 35.6; Range: 24.0-44.0; Units: %; Status: F Test: MONO %; Value: 6.0; Range: 0.0-5.0; Abnormal: Above high normal; Units: %; Status: F Test: EOS %; Value: 2.0; Range: 0.0-3.0; Units: %; Status: F Test: BASO %; Value: 0.7; Range: 0.0-1.0; Units: %; Status: F Test: LARGE UNSTAINED CELL %; Value: 2.7; Range: 0.0-4.0; Units: %; Status: F Test: NEUTROPHILS #; Value: 2.1; Range: 1.8-7.7; Units: K/mm3; Status: F Test: LYMPH #; Value: 1.4; Range: 1.5-4.5; Abnormal: Below low normal; Units: K/mm3; Status: F Test: MONO #; Value: 0.2; Range: 0.0-0.8; Units: K/mm3; Status: F Test: EOS #; Value: 0.1; Range: 0.0-0.50; Units: K/mm3; Status: F Test: BASO #; Value: 0.0; Range: 0.0-0.2; Units: K/mm3; Status: F Test: LARGE UNSTAINED CELL #; Value: 0.1; Range: 0.0-0.4; Units: K/mm3; Status: F Lab Order: Cardiac Injury Profile; SPEC'M 07/14/16 08:54 Test: CPK CREATINE PHOSPHOKINASE; Value: 40; Range: 26-192; Units: U/L; Status: F Test: CK-MB VALUE MASS; Value: 1.0; Range: 0.0-3.6; Units: NG/ML; Status: F Test: MB/CK RELATIVE INDEX; Value: 2.50; Range: < OR =4; Status: F Test Note: ; DIAGNOSIS CRITERIA MMB ng/ml Relative Index (RI) NON-AMI < or = 5 N/A TARIQ ZONE > 5 < or = 4 AMI > 5 > 4 Lab Order: Troponin; SPEC'M 07/14/16 08:54 Test: TROPONIN I; Value: < 0.02; Range: < 0.10; Units: NG/ML; Status: F Test Note: ; Troponin I Reference Interval for [employer]: 99th Percentile= 0.00-0.045 ng/ml Risk Stratification: <= 0.10 ng/ml Decreased Risk for Adverse Clinical Events. 0.10-1.50 ng/ml Increased Risk for Adverse Clinical Events. Evaluation of additional criterion and/or repeat testing in 2-6 hours is suggested to rule out myocardial damage. >= 1.50 ng/ml Indicative of Myocardial Injury. Lab Order: D-Dimer Quant; SPEC'M 07/14/16 08:54 Test: D-DIMER QUANT; Value: < 270.0; Range: <500; Units: ng/ml; Status: F Lab Order: Troponin; SPEC'M 07/14/16 11:31 Test: TROPONIN I; Value: < 0.02; Range: < 0.10; Units: NG/ML; Status: F Test Note: ; Troponin I Reference Interval for [employer] [place] [employer]: 99th Percentile= 0.00-0.045 ng/ml Risk Stratification: <= 0.10 ng/ml Decreased Risk for Adverse Clinical Events. 0.10-1.50 ng/ml Increased Risk for Adverse Clinical Events. Evaluation of additional criterion and/or repeat testing in 2-6 hours is suggested to rule out myocardial damage. >= 1.50 ng/ml Indicative of Myocardial Injury. Lab Order: CARDIAC INJURY PROFILE; SPEC'M 07/14/16 11:31 Test: CPK CREATINE PHOSPHOKINASE; Value: 26; Range: 26-192; Units: U/L; Status: F Test: CK-MB VALUE MASS; Value: 1.0; Range: 0.0-3.6; Units: NG/ML; Status: F Test: MB/CK RELATIVE INDEX; Value: 3.84; Range: < OR =4; Status: F Test Note: ; DIAGNOSIS CRITERIA MMB ng/ml Relative Index (RI) NON-AMI < or = 5 N/A TARIQ ZONE > 5 < or = 4 AMI > 5 > 4 Radiology Order: EKG-ADULT Test: EKG-ADULT REASON FOR EXAMINATION: Chest Pain; Stationary ECG Study; [facility] - ED; ; Test Date: 2016-07-14; Pat Name: KELLI JOECLARISSE Department:; Room: -; 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 The heart is normal in size. 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 tariq 12:40 Discharge Assessment: patient administered narcotics - no. The following High Risk mlb1 Discharge criteria are identified: None. Discharged to home ambulatory. Condition: good. Discharge instructions given to patient, Instructed on discharge instructions, follow up and referral plans. Demonstrated understanding of instructions, medications, Pt was receptive of discharge instructions/ teaching. No special radiology studies were completed. Property removed. 12:41 Patient left the ED. mlb1 Signatures: Dispatcher [employer] EDMS Emma Coleman MD MD sd1 Sunni Duncan, Silver Reg Bc Herrera RN RN mlb1 Angelia Hicks RN RN kr3 Celestina Rubio1 Drake Alfred mm15 Magen Campbell jp5 Naomie Underwood DO DO jo4 Chart Complete MTDD
--- NOTE | 2016-07-16 13:43 | EDDOCDS ---
Physician Documentation [facility] Name: Kelli Collins Age: 56 yrs Sex: Female : 1960 Arrival Date: 07/14/2016 Time: 08:40 Bed OBSERVATION Private MD: Disposition: 07/14 10:13 I have independently interviewed and examined the patient, and I agree with the sd1 investigation, diagnosis and treatment plan as documented by the Resident. Disposition: 07/14/16 12:22 Discharged to Home/Self Care. Impression: Gastro-esophageal reflux disease. - Condition is Stable. - Medication Reconciliation, Local Pharmacy Hours form. - Follow up: Private Physician; When: As previously arranged; Reason: Recheck today's complaints, Continuance of care. - Problem is new. - Symptoms have improved. - Notes: You were evaluated in the emergency department for chest pain. Your initial and repeatlaboratory results reported no acute changes. Your initial EKG and repeat EKG reported no acute changes. Your chest x-ray revealed no acute disease. You were given a selection of stomach medications which relieved your symptoms. Please keep your pre-scheduled appointment with your mandrel puller and schedule an appointment with your primary care provider at your soonest convenience. Historical: - Allergies: no known allergies; - Home Meds: 1. Zantac 150 mg Oral cap 1 cap 2 times per day 2. Vitamin D3 oral oral daily 3. Estradiol 10mcg Oral once daily - PMHx: GERD; - PSHx: none; - Social history: Smoking status: Patient states former smoker of tobacco. No barriers to communication noted, The patient speaks fluent Mongolian. - Family history: Not pertinent. - : The pt / caregiver states he / she is not on anticoagulants. Home medication list is obtained from the patient, family members. - Exposure Risk Screening:: None identified. 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 8 in. (172.72 cm); kr3 08:53 BP 161 / 72 (auto/); mlb1 08:53 Pulse 108 MON; Pulse Ox 94% ; mlb1 08:53 BP 116 / 59; Pulse 62; Resp 16; Temp 97.7(O); Pulse Ox 96% on R/A; Pain 0/10; mlb1 08:55 BP 161 / 72; Pulse 118; Resp 18; Pulse Ox 99% on R/A; Pain 5/10; dem1 08:57 Temp 96.8(O); dem1 09:08 BP 131 / 63 (auto/); mlb1 09:08 Pulse 62 MON; Pulse Ox 98% ; mlb1 09:23 BP 129 / 63 (auto/); mlb1 09:23 Pulse 64 MON; Pulse Ox 98% ; mlb1 09:38 BP 156 / 71 (auto/); mlb1 09:38 Pulse 72 MON; Pulse Ox 99% ; mlb1 09:53 BP 139 / 65 (auto/); mlb1 09:53 Pulse 60 MON; Pulse Ox 99% ; mlb1 10:08 BP 131 / 64 (auto/); mlb1 10:08 Pulse 70 MON; Pulse Ox 100% ; mlb1 10:23 BP 129 / 68 (auto/); mlb1 10:23 Pulse 62 MON; Pulse Ox 98% ; mlb1 10:38 BP 115 / 59 (auto/); mlb1 10:38 Pulse 66 MON; Pulse Ox 97% ; mlb1 10:39 Pain 0/10; mlb1 10:53 BP 117 / 67 (auto/); mlb1 10:53 Pulse 62 MON; Pulse Ox 97% ; mlb1 11:08 BP 130 / 64 (auto/); mlb1 11:08 Pulse 116 MON; Pulse Ox 96% ; mlb1 11:23 BP 120 / 61 (auto/); mlb1 11:23 Pulse 60 MON; Pulse Ox 96% ; mlb1 11:38 BP 129 / 65 (auto/); mlb1 11:38 Pulse 64 MON; Pulse Ox 98% ; mlb1 11:53 BP 119 / 60 (auto/); mlb1 11:53 Pulse 66 MON; Pulse Ox 98% ; mlb1 12:21 BP 118 / 55 (auto/); mlb1 12:22 Pulse 60 MON; Pulse Ox 98% ; mlb1 12:23 BP 128 / 59 (auto/); mlb1 12:23 Pulse 60 MON; Pulse Ox 98% ; mlb1 08:49 Body Mass Index 25.85 (77.11 kg, 172.72 cm) kr3 MDM: 08:43 ECG WITH READING ER PHYS+CARDIAG ordered. 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 sd1 08:45 IV Saline Lock ordered. sd1 08:45 Rhythm Strip to chart ordered. sd1 08:45 Undress patient appropriately for examination ordered. sd1 08:47 Basic Metabolic Profile Ordered. EDMS 08:47 CBC with Diff Ordered. EDMS 08:47 Cardiac Injury Profile Ordered. EDMS 08:47 Troponin Ordered. EDMS 08:49 portable chest Ordered. EDMS 09:19 CBC with Diff Reviewed. jo4 09:45 Basic Metabolic Profile Reviewed. sd1 09:45 Cardiac Injury Profile Reviewed. sd1 09:45 Troponin Reviewed. sd1 09:45 portable chest Reviewed. sd1 09:52 D-Dimer Quant Ordered. EDMS 10:02 GI Cocktail - (Alum-Mag Hydroxide-Simeth 30 ml, Lidocaine 10 ml, Hyoscyamine 10 ml) PO jo4 once; Pre-mixed 50mL unit dose ordered. 10:02 pantoprazole 40 mg IV at bolus once ordered. jo4 10:11 ED course: 56 yo female presents reporting chest pain this am feels like GERD- recent sd1 medication change no cardiac history patient did drive from [place] approximatly [address] no associated complaints or symptoms has been in baseline state of health no exertional symptoms exam well appearing no distress unremarkable plan suspect GI etiology however R/O cardiac and PE . 10:56 D-Dimer Quant Reviewed. jo4 11:05 [facility] Payment Agreement was scanned into [employer] and attached to record. jp5 11:05 Financial registration complete. jp5 11:24 Sucralfate 1 grams PO once ordered. sd1 11:39 Redraw CIP &Troponin (put time in details section) ordered. jo4 11:39 Repeat EKG (put time details section) ordered. jo4 11:39 Repeat EKG (put time details section) complete. mlb1 11:39 Redraw CIP &Troponin (put time in details section) complete. mlb1 11:43 CARDIAC INJURY PROFILE Ordered. EDMS 11:54 ECG WITH READING ER PHYS ordered. EDMS 12:19 CARDIAC INJURY PROFILE Reviewed. jo4 12:19 Troponin Reviewed. jo4 14:29 ECG/EKG was scanned into [employer] and attached to record. gb 07/15 11:02 T-Sheet-- Draft Copy was scanned into [employer] and attached to record. gb Administered Medications: 07/14 10:14 Drug: GI Cocktail - (Alum-Mag Hydroxide-Simeth Suspension 225 mg-200 mg-25 mg/5 mL 30 mlb1 ml, Lidocaine Liquid 2 % 10 ml, Hyoscyamine Liquid 10 ml) Route: PO; 10:39 Follow up: Pain 0/10 Adult; chest pain resolved, reports pain 2/10 in left arm only mlb1 10:14 Drug: pantoprazole 40 mg [pantoprazole 40 mg intravenous solution] Route: IV; Rate: mlb1 bolus; Site: left antecubital; 11:29 Drug: Sucralfate 1 grams [sucralfate 1 gram tablet (1 tabs)] Route: PO; mlb1 Signatures: Dispatcher [employer] EDMS Emma Coleman MD MD sd1 Sunni Duncan, Silver Reg Bc Herrera RN RN mlb1 Angelia HicksRN RN kr3 Magen Campbell jp5 Naomie Underwood DO DO jo4 The chart was reviewed and I authenticate all verbal orders and agree with the evaluation and treatment provided.Corrections: (The following items were deleted from the chart) 11:33 11:27 CARDIAC INJURY PROFILE+LAB ordered. EDMS EDMS 11:33 11:27 TROPONIN+LAB ordered. EDMS EDMS 11:38 11:32 Repeat EKG (put time details section) ordered. jo4 jo4 11:38 11:32 Redraw CIP &Troponin (put time in details section) ordered. jo4 jo4 11:57 11:54 CARDIAC MARKER PANEL ordered. EDMS EDMS 12:11 11:27 ECG WITH READING ER PHYS+CARDIAG ordered. EDMS EDMS Attachments: 11:05 [facility] Payment Agreement jp5 14:29 ECG/EKG 07/15 11:02 T-Sheet-- Draft Copy gb Chart Complete MTDD
== END 2016-07-14 12:41 | disposition home or self-care (01) ==
LOC: M ED 08:40
DX: K21.9 Gastro-esophageal reflux disease without esophagitis (principal); Z79.899 Other long term (current) drug therapy; Z87.891 Personal history of nicotine dependence; Z79.890 Hormone replacement therapy
CPT/HCPCS: 36415; 71010; 80048; 82550; 82553; 85025; 85379; 93005; 93041; 96374; 99285; C9113